=== PATIENT | female | born 1965 | race African-American/Black ===

== ENCOUNTER 2018-05-21 17:08 | Emergency (ER) | payer BC, OTHER ==
[~2018-05-21] VITALS: Ht 162.6 cm; Wt 76.0 kg
[2018-05-21] MEDS ORDERED: HYDROCODONE/ACETAMINOPHEN 5/325MG TABLET PO ONE (22:45)
[2018-05-21] MEDS ORDERED: CYCLOBENZAPRINE 10MG TABLET PO ONE (22:45)
[2018-05-22 02:05] VITALS: BP 118/70
== END 2018-05-22 02:09 | disposition home or self-care (01) ==
LOC: ER 17:08
DX: S20.212A Contusion of left front wall of thorax, initial encounter (principal); S80.02XA Contusion of left knee, initial encounter; E78.00 Pure hypercholesterolemia, unspecified; R11.0 Nausea; I10 Essential (primary) hypertension; V49.49XA Driver injured in collision with other motor vehicles in traffic accident, initial encounter; Y93.89 Activity, other specified; Y92.89 Other specified places as the place of occurrence of the external cause; Y99.8 Other external cause status
CPT/HCPCS: 71046; 73562; 93005; 99283; Z7610

== ENCOUNTER 2024-09-09 09:38 | Inpatient (IN) | payer OTHER ==
[~2024-09-09] VITALS: Ht 157.5 cm; Wt 61.2 kg
[2024-09-09 10:54] LABS: BASOPHILS % 0.7 % (0.0-2.0); EOSINOPHILS % 0.8 % (0.0-5.0); HEMATOCRIT. 38.8 % (36.0-48.0); HEMOGLOBIN. 12.8 g/dL (12.0-16.0); LYMPHOCYTES % 48.3 % (20.0-50.0); MEAN CORPUSCULAR HEMOGLOBIN 28.8 pg (28.0-32.0); MEAN CORPUSCULAR VOLUME 87.3 fL (81.0-99.0); MEAN PLATELET VOLUME 8.7 fl (7.4-10.4); MONOCYTES % 6.4 % (2.0-8.0); NEUTROPHILS % 43.8 % (40.0-76.0); PLATELET 265 x1000/uL (130-400); RED BLOOD CELL COUNT 4.44 mill/uL (4.2-5.4); RED CELL DISTRIBUTION WIDTH 13.2 % (11.6-14.6); WHITE BLOOD COUNT 5.4 x1000/uL (4.5-11.0)
[2024-09-09 11:10] LABS: CHLORIDE 106 mEq/L (98-107); POTASSIUM 3.8 mEq/L (3.5-5.1); SODIUM 139 mEq/L (136-145)
[2024-09-09 11:11] LABS: CARBON DIOXIDE 27 mEq/L (21-32)
[2024-09-09 11:12] LABS: CALCIUM 9.9 mg/dL (8.7-10.4)
[2024-09-09 11:16] LABS: CREATININE 0.7 mg/dL (0.6-1.0); GLUCOSE 154 mg/dL (70-105)
[2024-09-09 11:17] LABS: UREA NITROGEN BLOOD 11 mg/dL (9-23)
[2024-09-09 11:18] LABS: TROPONIN I HIGH SENSITIVITY 19 ng/L (3.0-34)
[2024-09-09 12:00] VITALS: BP 165/87; PULSE 65; RESP 18; TEMP 37.1; O2SAT 100
[2024-09-09 13:27] VITALS: BP 165/87; PULSE 65; RESP 18; TEMP 37.1
[2024-09-09] MEDS ORDERED: LOSA25TA26 PO (13:40)
[2024-09-09] MEDS ORDERED: ATOR40TA70 PO (13:40)
[2024-09-09] MEDS ORDERED: DEXTROSE 50% WATER 50ML SYRINGE IV PRN (14:30)
[2024-09-09] MEDS ORDERED: ONDANSETRON HCL 4MG/2ML INJ IV PRN (14:30)
[2024-09-09] MEDS: AMLODIPINE 10MG TABLET PO SCH (14:53)
[2024-09-09 16:30] VITALS: BP 152/82; PULSE 60; RESP 18; TEMP 36.8; O2SAT 97
[2024-09-09] MEDS: BLOOD SUGAR DIAGNOSTIC STRIP TEST SCH (16:45)
[2024-09-09] MEDS ORDERED: CLONIDINE 0.1MG TABLET PO PRN (17:00)
[2024-09-09] MEDS: LOSARTAN 100 MG TABLET PO SCH (17:21)
[2024-09-09] MEDS: INSULIN LISPRO 100 UNITS/ML SUBCUT SCH (17:23)
[2024-09-09 18:31] LABS: CLARITY URINE CLEAR (CLEAR); COLOR URINE YELLOW (YELLOW); GLUCOSE URINE 3+ (NEGATIVE); KETONES URINE TRACE (NEGATIVE); LEUKOCYTE ESTERASE URINE NEGATIVE (NEGATIVE); NITRITE URINE NEGATIVE (NEGATIVE); OCCULT BLOOD URINE NEGATIVE (NEGATIVE); PROTEIN URINE NEGATIVE (NEGATIVE); SPECIFIC GRAVITY URINE 1.027 (1.005-1.030)
[2024-09-09 19:32] LABS: RBC URINE NONE SEEN /hpf (0-2)
[2024-09-09 19:33] LABS: BACTERIA URINE TRACE; SQUAMOUS EPITHELIAL CELL URINE 1+ /lpf (RARE/1+)
[2024-09-09 20:00] VITALS: BP 139/75; PULSE 76; RESP 18; TEMP 36.6; O2SAT 97
[2024-09-10] VITALS: BP 146/87; PULSE 56; RESP 17; TEMP 36.6; O2SAT 99
[2024-09-10 04:00] VITALS: BP 151/80; PULSE 60; RESP 17; TEMP 36.5; O2SAT 99
[2024-09-10 08:00] VITALS: BP 131/74; PULSE 65; RESP 18; TEMP 36.6; O2SAT 97
[2024-09-10 12:00] VITALS: BP 128/79; PULSE 83; RESP 18; TEMP 36.5; O2SAT 96
[2024-09-10] MEDS: ACETAMINOPHEN 325MG TABLET PO PRN (12:28)
[2024-09-10] MEDS ORDERED: AMLO10TA80 MT (12:42)
[2024-09-10] MEDS ORDERED: LOSA100T33 MT (12:42)
[2024-09-10] MEDS ORDERED: INSU100I28 SQ (12:42)
[2024-09-10 14:00] VITALS: BP 108/66; PULSE 70; TEMP 98; O2SAT 97
[2024-09-10 16:00] VITALS: BP 134/81; PULSE 69; RESP 18; TEMP 36.6; O2SAT 97
== END 2024-09-10 16:30 | disposition home or self-care (01) | DRG 199 ==
LOC: ER 09:38 → 8WST 11:39 → EDBEDREQTM 11:45 → EDBEDREQ 11:45
PROVIDERS: ADMIT Internal Medicine; ATTEND Internal Medicine
DX: I16.0 Hypertensive urgency (principal); E11.9 Type 2 diabetes mellitus without complications; E78.00 Pure hypercholesterolemia, unspecified; I10 Essential (primary) hypertension; Z79.899 Other long term (current) drug therapy
CPT/HCPCS: 36415; 71045; 80048; 81003; 82962; 83036; 83880; 84484; 85025; 93005; 99285; J1815

== ENCOUNTER 2025-03-05 16:37 | Inpatient (IN) | payer SELFPAY ==
[2025-03-04 20:16] VITALS: BP 144/85; PULSE 76; RESP 18; TEMP 36.14
[~2025-03-05] VITALS: Ht 170.2 cm; Wt 82.0 kg
[~2025-03-05 16:37] MED LIST: AMLO10TA80 MT; ATOR40TA70 PO; INSU100I28 SQ; LOSA100T33 MT
[2025-03-05 16:39] VITALS: O2SAT 98
[2025-03-05] MEDS: SODIUM CHLORIDE 0.9% (SEPSIS BOLUS) IV ONE (17:09)
[2025-03-05] MEDS: PIPERACILLIN/TAZO 3.375G/50ML 50 ML IV ONE (17:09)
[2025-03-05 17:19] LABS: BG DEOXYHEMOGLOBIN 17.1 % (0.0-5.0)
[2025-03-05 17:32] LABS: BASOPHILS % 1.0 % (0.0-2.0); EOSINOPHILS % 0.7 % (0.0-5.0); HEMATOCRIT. 44.3 % (36.0-48.0); HEMOGLOBIN. 14.5 g/dL (12.0-16.0); LYMPHOCYTES % 52.1 % (20.0-50.0); MEAN PLATELET VOLUME 9.2 fl (7.4-10.4); MONOCYTES % 5.3 % (2.0-8.0); NEUTROPHILS % 40.9 % (40.0-76.0); PLATELET 256 x1000/uL (130-400); RED BLOOD CELL COUNT 5.17 mill/uL (4.2-5.4); RED CELL DISTRIBUTION WIDTH 12.6 % (11.6-14.6)
[2025-03-05 17:40] LABS: CREATININE 1.1 mg/dL (0.6-1.0)
[2025-03-05 17:41] LABS: UREA NITROGEN BLOOD 16 mg/dL (9-23)
[2025-03-05 17:42] LABS: ASPARTATE AMINOTRANSFERASE 13 IU/L (<34)
[2025-03-05 17:43] LABS: BILIRUBIN DIRECT < 0.1 mg/dL (<=3.0); BILIRUBIN TOTAL 0.5 mg/dL (0.1-1.0); PROTEIN TOTAL 6.8 g/dL (6.0-8.3)
[2025-03-05 17:52] LABS: INR 0.9
[2025-03-05] MEDS: VANCOMYCIN 1G PREMIX 200 ML IV ONE (18:08)
[2025-03-05 18:10] LABS: CLARITY URINE CLEAR (CLEAR); COLOR URINE YELLOW (YELLOW); GLUCOSE URINE 3+ (NEGATIVE); KETONES URINE NEGATIVE (NEGATIVE); LEUKOCYTE ESTERASE URINE NEGATIVE (NEGATIVE); NITRITE URINE NEGATIVE (NEGATIVE); OCCULT BLOOD URINE TRACE (NEGATIVE); PH URINE 6.5 (4.5-8.0); PROTEIN URINE NEGATIVE (NEGATIVE); SPECIFIC GRAVITY URINE 1.027 (1.005-1.030); UROBILINOGEN URINE 0.2 E.U./dL (0.2-1.0)
[2025-03-05 18:46] LABS: BACTERIA URINE NONE SEEN; RBC URINE NONE SEEN /hpf (0-2); SQUAMOUS EPITHELIAL CELL URINE NONE SEEN /lpf (RARE/1+); WBC URINE NONE SEEN /hpf (0-2)
[2025-03-05] MEDS: ACETAMINOPHEN 325MG TABLET PO NR (19:09)
[2025-03-05] MEDS: SODIUM CHLORIDE 0.9% 1,000 ML IV ONE (19:23)
[2025-03-05] MEDS: POTASSIUM CHLORIDE 20MEQ/PACKET PO ONE (19:23)
[2025-03-05] MEDS: INSULIN REGULAR (HUMULIN R) 1000UNITS/10ML VIAL IV ONE (19:24)
[2025-03-05] MEDS ORDERED: IPRATROPIUM/ALBUTEROL 0.5-3(2.5)MG/3ML NEB HHN PRN (19:45)
[2025-03-05] MEDS ORDERED: ONDANSETRON HCL 4MG/2ML INJ IV PRN (19:45)
[2025-03-05] MEDS ORDERED: MAGNESIUM/ALUMINUM HYDROXIDE/SIMETHICONE 30ML UDC PO PRN (19:45)
[2025-03-05] MEDS ORDERED: DOCUSATE SODIUM 100MG CAPSULE PO PRN (19:45)
[2025-03-05] MEDS ORDERED: DEXTROSE 50% WATER 50ML SYRINGE IV PRN (19:45)
[2025-03-05] MEDS ORDERED: GUAIFENESIN 200MG/10ML SUGAR FREE UDC PO PRN (19:45)
[2025-03-05 20:01] LABS: PHOSPHORUS 3.0 mg/dL (2.5-4.9)
[2025-03-05 20:39] VITALS: BP_SYST 137; BP_SYST 144; BP_DIAS 68; BP_DIAS 85; PULSE 86; RESP 18; TEMP 36.1; O2SAT 97
[2025-03-05 20:42] VITALS: BP 144/85
[2025-03-05 20:59] LABS: INFLUENZA TYPE A Presumptive Negative (Pres. Neg.); INFLUENZA TYPE B Presumptive Negative (Pres. Neg.)
[2025-03-05] MEDS: BLOOD SUGAR DIAGNOSTIC STRIP TEST SCH (21:00)
[2025-03-05 21:01] LABS: RESPIRATORY SYNCYTIAL VIRUS Not Detected (Not Detectd)
[2025-03-05] MEDS: SODIUM CHLORIDE 0.9% 1,000 ML IV SCH (23:00)
[2025-03-05] MEDS: INSULIN GLARGINE 100 UNITS/ML SUBCUT SCH (23:02)
[2025-03-05] MEDS: INSULIN LISPRO 100 UNITS/ML SUBCUT SCH (23:03)
[2025-03-06] VITALS: BP 120/65; PULSE 79; RESP 18; TEMP 36.2; O2SAT 97
[2025-03-06 00:07] LABS: TRIGLYCERIDE 536.0 mg/dL (0-150)
[2025-03-06 00:08] LABS: LDL CHOLESTEROL 166.0 mg/dL (5-100)
[2025-03-06] MEDS: HYDROCODONE/ACETAMINOPHEN 5/325MG TABLET PO NR (02:05)
[2025-03-06 04:00] VITALS: BP 157/67; PULSE 63; RESP 18; TEMP 36.3; O2SAT 100
[2025-03-06] MEDS: BLOOD SUGAR DIAGNOSTIC STRIP TEST SCH (07:35)
[2025-03-06] MEDS ORDERED: INSULIN LISPRO 100 UNITS/ML SUBCUT SCH (07:40)
[2025-03-06 08:00] VITALS: BP 132/78; PULSE 67; RESP 17; TEMP 36.8; O2SAT 97
[2025-03-06 08:09] LABS: BASOPHILS % 0.5 % (0.0-2.0); EOSINOPHILS % 1.5 % (0.0-5.0); HEMATOCRIT. 36.7 % (36.0-48.0); HEMOGLOBIN. 11.7 g/dL (12.0-16.0); LYMPHOCYTES % 63.3 % (20.0-50.0); MEAN PLATELET VOLUME 8.7 fl (7.4-10.4); MONOCYTES % 7.3 % (2.0-8.0); NEUTROPHILS % 27.4 % (40.0-76.0); PLATELET 210 x1000/uL (130-400); RED BLOOD CELL COUNT 4.25 mill/uL (4.2-5.4); RED CELL DISTRIBUTION WIDTH 13.1 % (11.6-14.6)
[2025-03-06 08:24] LABS: CREATININE 0.6 mg/dL (0.6-1.0); UREA NITROGEN BLOOD 12 mg/dL (9-23)
[2025-03-06] MEDS: INSULIN LISPRO 100 UNITS/ML SUBCUT SCH (08:37)
[2025-03-06] MEDS: AMLODIPINE 10MG TABLET PO SCH (08:38)
[2025-03-06] MEDS: LOSARTAN 100 MG TABLET PO SCH (08:38)
[2025-03-06] MEDS: FAMOTIDINE 20MG/2ML VIAL IV SCH (08:38)
[2025-03-06] MEDS: ENOXAPARIN 40MG/0.4ML SYR SUBCUT SCH (08:38)
[2025-03-06] MEDS: ACETAMINOPHEN 325MG TABLET PO PRN (09:19)
[2025-03-06] MEDS ORDERED: INSU100I28 SQ (11:15)
[2025-03-06 12:29] VITALS: BP 117/60; PULSE 71; RESP 18; TEMP 36.7; O2SAT 100
[2025-03-06 14:07] VITALS: BP 115/70; PULSE 75; RESP 17; TEMP 98
[2025-03-06 16:07] VITALS: BP 121/75; PULSE 75; RESP 17; TEMP 36.2; O2SAT 100
[2025-03-06] MEDS ORDERED: ATORVASTATIN CALCIUM 40MG TABLET PO SCH (21:00)
== END 2025-03-06 16:10 | disposition home or self-care (01) | DRG 420 ==
LOC: ER 16:37 → EDBEDREQ 17:10 → 8WST 18:34 → EDBEDREQ 18:38 → EDBEDREQTM 18:38 → EDBEDREQSVC 18:38 → ENRESERV 19:39
PROVIDERS: ADMIT Hospitalist; ATTEND Hospitalist
DX: E11.00 Type 2 diabetes mellitus with hyperosmolarity without nonketotic hyperglycemic-hyperosmolar coma (NKHHC) (principal); E87.20 Acidosis, unspecified; N17.9 Acute kidney failure, unspecified; I10 Essential (primary) hypertension; E78.00 Pure hypercholesterolemia, unspecified; Z20.822 Contact with and (suspected) exposure to COVID-19; E83.52 Hypercalcemia; E86.0 Dehydration; E87.1 Hypo-osmolality and hyponatremia; Z79.4 Long term (current) use of insulin
CPT/HCPCS: 36415; 71045; 80048; 80061; 80076; 81003; 82010; 82375; 82803; 82962; 83036; 83605; 83735; 83930; 84100; 84145; 85025; 87420; 87426; 87804; 93005; 96365; 96367; 99291; J1308; J1650; J1815; J2543; J3373; J7030